=== PATIENT | female | born 1975 | race Caucasian/White ===

== ENCOUNTER 2016-11-11 14:21 | Emergency (ER) | payer SELFPAY ==
[~2016-11-11] VITALS: Ht 152.4 cm; Wt 57.0 kg
[~2016-11-11 14:21] MED LIST: MOBIC7.5 MG PO; MOTRIN600 MG PO; MULTIPLE VITAM1 EAC4 PO; PREDNISONE10 MG PO; TRAMADOL HCL50 MG PO; UNISOM50 MG PO
[2016-11-11] MEDS ORDERED: AUGMENTIN875 MG PO (18:09)
[2016-11-11 18:36] VITALS: BP 128/77
== END 2016-11-11 18:37 | disposition home or self-care (01) ==
LOC: EME 14:21
PROC: 3E0234Z Introduction of Serum, Toxoid and Vaccine into Muscle, Percutaneous Approach (ICD-10-PCS; principal; 2016-11-11)
PROC: 2W3JX1Z Immobilization of Right Finger using Splint (ICD-10-PCS; principal; 2016-11-11)
PROC: 0HQFXZZ Repair Right Hand Skin, External Approach (ICD-10-PCS; principal; 2016-11-11)
DX: S61.210A Laceration without foreign body of right index finger without damage to nail, initial encounter (principal); W54.0XXA Bitten by dog, initial encounter; Z23 Encounter for immunization
CPT/HCPCS: 73140; 99281; 99283; S0020

== ENCOUNTER 2017-01-21 15:19 | Emergency (ER) | payer SELFPAY ==
[~2017-01-21] VITALS: Ht 158.8 cm; Wt 58.4 kg
[~2017-01-21 15:19] MED LIST changes: +AUGMENTIN875 MG PO
[2017-01-21] MEDS ORDERED: PREDNISONE10 MG PO (15:40)
[2017-01-21] MEDS ORDERED: NAPROSYN500 MG PO (15:40)
[2017-01-21] MEDS ORDERED: VALIUM5 MG PO (15:40)
[2017-01-21 15:47] VITALS: BP 143/95
== END 2017-01-21 15:59 | disposition home or self-care (01) ==
LOC: EME 15:19
DX: M54.5 Low back pain (principal)
CPT/HCPCS: 99281; 99284; J1100; J1885